=== PATIENT | female | born 1970 | race Caucasian/White ===

== ENCOUNTER 2017-05-18 07:57 | Outpatient (CLI) | payer OTHER ==
[~2017-05-18] VITALS: Ht 170.2 cm; Wt 64.8 kg
[2017-05-18] VITALS (7 sets, daily range): BP systolic 103–134; BP diastolic 66–80; PULSE 63–70; TEMP 98.2
[~2017-05-18 07:57] MED LIST: CALCIUM 600/VIT1 CAP PO; ESTRACE 1MG1 MG/TAB PO; IMURAN 50MG TAB50 MG PO; STEROIDS; VITAMIN B11000 MCG/M IM
[2017-05-18 14:42] LABS: CEREBROSPINAL TUBE #4; CSF APPEARANCE CLEAR; CSF COLOR COLORLESS
[2017-05-20 13:28] LABS: ALBUMIN CSF 21.4 mg/dL (<=27.0); CSF IGG/ALBUMIN 0.17 (<=0.21); CSF,IGG 3.7 mg/dL (<=8.1)
[2017-05-20 13:36] LABS: CSF SYNTHESIS RATE 9.51 mg/24 h (<=12); CSF-IGG INDEX 1.06 (<=0.85); IGG/ALBUMIN SERUM 0.16 (<=0.40)
== END 2017-05-18 11:02 | disposition home or self-care (01) ==
LOC: COL.RAD 07:57
PROVIDERS: Psychiatry & Neurology Neurology
DX: H53.9 Unspecified visual disturbance (principal); R20.0 Anesthesia of skin; R90.89 Other abnormal findings on diagnostic imaging of central nervous system; R20.2 Paresthesia of skin

== ENCOUNTER → 2017-05-23 | Outpatient (CLI) | payer OTHER | LOC: COL.RAD 07:12 | DX: M89.9 Disorder of bone, unspecified (principal); G35 Multiple sclerosis; R20.2 Paresthesia of skin; H53.9 Unspecified visual disturbance | CPT/HCPCS: A9585 ==

== ENCOUNTER → 2017-05-24 | Outpatient (CLI) | payer OTHER | LOC: COL.RAD 07:20 | DX: R90.89 Other abnormal findings on diagnostic imaging of central nervous system (principal); R20.0 Anesthesia of skin; R20.2 Paresthesia of skin; H53.9 Unspecified visual disturbance | CPT/HCPCS: A9585 ==

== ENCOUNTER → 2018-04-19 | Outpatient (CLI) | payer OTHER ==
[~2018-04-19] MED LIST changes: +COPAXONE40 MG/ML SQ; +GRALISE300 MG PO; +VITAMIN D 1001000 IU
== END ==
LOC: COL.RAD 09:45
DX: G35 Multiple sclerosis (principal); G93.9 Disorder of brain, unspecified; M47.812 Spondylosis without myelopathy or radiculopathy, cervical region
CPT/HCPCS: A9585

== ENCOUNTER → 2018-04-20 | Outpatient (CLI) | payer OTHER | LOC: COL.RAD 09:00 | DX: M51.87 Other intervertebral disc disorders, lumbosacral region (principal); R20.0 Anesthesia of skin; H53.9 Unspecified visual disturbance; G35 Multiple sclerosis | CPT/HCPCS: A9585 ==

== ENCOUNTER 2018-04-21 07:03 | Outpatient (RCR) | payer OTHER ==
[~2018-04-21] VITALS: Ht 170.2 cm; Wt 96.3 kg
[~2018-04-21 07:03] MED LIST changes: -COPAXONE40 MG/ML SQ; -GRALISE300 MG PO; -VITAMIN D 1001000 IU
[2018-04-21] MEDS ORDERED: GRALISE300 MG PO (07:41)
[2018-04-21] MEDS ORDERED: COPAXONE40 MG/ML SQ (07:43)
[2018-04-21] MEDS ORDERED: VITAMIN D 1001000 IU (07:45)
[2018-04-21 09:50] VITALS: BP 114/59; PULSE 64; TEMP 97.6
[2018-04-22 07:19] VITALS: BP 125/70; PULSE 78; TEMP 97.9
[2018-04-23 06:56] VITALS: BP 135/78; PULSE 69; TEMP 97
[2018-04-24 07:13] VITALS: BP 139/76; PULSE 62; TEMP 96.6
[2018-04-25 07:17] VITALS: BP 125/72; PULSE 58; TEMP 98.2
== END 2018-04-25 09:18 | disposition home or self-care (01) ==
LOC: EUO 07:10
DX: G35 Multiple sclerosis (principal)
CPT/HCPCS: J2930; J7050

== ENCOUNTER → 2018-10-01 | Outpatient (CLI) | payer OTHER ==
[~2018-10-01] MED LIST changes: +COPAXONE40 MG/ML SQ; +GRALISE300 MG PO; +VITAMIN D 1001000 IU
== END ==
LOC: COL.RAD 10:00
DX: G35 Multiple sclerosis (principal)
CPT/HCPCS: A9585

== ENCOUNTER → 2018-10-03 | Outpatient (CLI) | payer OTHER | LOC: COL.RAD 08:29 | DX: G35 Multiple sclerosis (principal); M51.36 Other intervertebral disc degeneration, lumbar region | CPT/HCPCS: A9585 ==

== ENCOUNTER 2019-01-02 07:00 | Outpatient (RCR) | payer OTHER ==
[2018-12-29 09:53] VITALS: BP 134/89; PULSE 68; TEMP 98.2
[2018-12-30 08:45] VITALS: BP 125/74; PULSE 68; TEMP 97.6
[2018-12-31 07:14] VITALS: BP 121/73; PULSE 59; TEMP 97.9
[2019-01-01 07:30] VITALS: BP 135/81; PULSE 82; TEMP 97.3
[~2019-01-02] VITALS: Ht 170.2 cm; Wt 71.2 kg
[~2019-01-02 07:00] MED LIST changes: +NEURONTIN100 MG/CAP PO; +NEURONTIN300 MG/CAP PO
[2019-01-02 07:30] VITALS: BP 125/73; PULSE 59; TEMP 98.4
== END 2019-01-02 09:03 | disposition home health service (06) ==
LOC: EUO 07:00
DX: G35 Multiple sclerosis (principal)
CPT/HCPCS: J2930; J7050

== ENCOUNTER 2019-02-08 08:41 | Outpatient (CLI) | payer OTHER ==
[~2019-02-08] VITALS: Ht 170.2 cm; Wt 70.0 kg
[2019-02-08] VITALS (13 sets, daily range): BP systolic 97–124; BP diastolic 60–85; PULSE 55–77; TEMP 97.6
[2019-02-08] MEDS ORDERED: GILENYA0.5 MG PO (09:01)
--- NOTE | 2019-02-08 12:06 | NUR ---
Pt tolerating Gilenya well at this time.
--- NOTE | 2019-02-08 13:30 | NUR ---
Heart rate dropped to 48 briefly. Pt states she feels dizzy.
--- NOTE | 2019-02-08 13:32 | NUR ---
HR recovered to 60, BP 111/77. Pt reports she is still slightly dizzy.
--- NOTE | 2019-02-08 17:24 | NUR ---
Pt reports she feels better. Pt sitting up in bed, alert and talkative.
--- NOTE | 2019-02-08 17:39 | NUR ---
Pt discharged per ambulation to car with SBA of nurse. Pt bipin well and discharged per private car.
== END 2019-02-08 17:40 | disposition home or self-care (01) ==
LOC: EUO 08:41
DX: G35 Multiple sclerosis (principal)

== ENCOUNTER 2019-03-23 08:00 | Outpatient (RCR) | payer OTHER ==
[2019-03-19 09:42] VITALS: BP 143/86; PULSE 69; TEMP 97.4
[2019-03-20 07:59] VITALS: BP 126/71; PULSE 71; TEMP 98.3
[2019-03-21 07:52] VITALS: BP 131/75; PULSE 68; TEMP 98.5
--- NOTE | 2019-03-21 09:54 | NUR ---
Pt bipin solumedrol well. Pt discharged per ambulation with PIV intact from infusion tomorrow.
[2019-03-22 09:20] VITALS: BP 135/81; PULSE 59; TEMP 98
--- NOTE | 2019-03-22 09:21 | NUR ---
Pt c/o pain imediately after start of IV solumeddrol.INT removed,catheter tip intact.New INt by DEREK Kauffman placed.
[~2019-03-23] VITALS: Ht 170.2 cm; Wt 73.0 kg
[~2019-03-23 08:00] MED LIST changes: +GILENYA0.5 MG PO
[2019-03-23 08:37] VITALS: BP 140/84; PULSE 56; TEMP 98
== END 2019-03-23 09:16 | disposition home or self-care (01) ==
LOC: EUO 08:00
DX: G35 Multiple sclerosis (principal)
CPT/HCPCS: J2930; J7050

== ENCOUNTER → 2019-05-27 | Outpatient (CLI) | payer OTHER | LOC: COL.RAD 07:20 | DX: G35 Multiple sclerosis (principal) | CPT/HCPCS: A9585 ==

== ENCOUNTER → 2020-10-21 | Outpatient (CLI) | payer OTHER | LOC: COL.RAD | DX: M50.222 Other cervical disc displacement at C5-C6 level (principal); M48.02 Spinal stenosis, cervical region | CPT/HCPCS: A9585 ==

== ENCOUNTER 2024-04-13 22:52 | Emergency (ER) | payer BC ==
[~2024-04-13] VITALS: Ht 170.2 cm; Wt 70.5 kg
[2024-04-13 22:56] VITALS: TEMP 98.5
[2024-04-13] MEDS ORDERED: fentaNYL 50 MCG/ML 2 ML VIAL IV ONE (23:30)
[2024-04-14 00:17] LABS: BASO # 0.1 K/mm3 (0.0-0.2); BASO % 0.7 % (0.0-2.0); EOS # 0.3 K/mm3 (0.0-0.7); EOS % 2.4 % (0.0-4.0); GRAN # 8.6 K/mm3 (1.4-6.5); GRAN % 72.9 % (42.2-75.2); HEMATOCRIT 41.2 % (37.0-47.0); HEMOGLOBIN 13.5 g/dl (12.5-16.0); LYMPH # 1.9 K/mm3 (1.2-3.4); LYMPH % 15.8 % (20.0-51.0); MEAN CELL VOLUME 96 fl (80.0-100.0); MEAN CORPUSCULAR HEMOGLOBIN 32 pg (27-31); MEAN CORPUSCULAR HGB CONC 33 g/dl (33.0-37.0); MEAN PLATELET VOLUME 9.6 fl (7.4-10.4); MONO # 0.9 K/mm3 (0.1-0.6); MONO % 7.8 % (1.7-9.3); PLATELET COUNT 368 K/mm3 (130-400); RED BLOOD COUNT 4.29 M/mm3 (4.10-5.30); REDCELL DISTRIBUTION WIDTH-CV 12.4 % (11.5-14.5)
[2024-04-14 00:36] LABS: ALANINE AMINOTRANSFERASE 17 U/L (0-55); ALKALINE PHOSPHATASE 63 U/L (40-150); ANION GAP 12 mmol/L (7-16); AST,SGOT 15 U/L (5-34); BILIRUBIN,TOTAL 0.5 mg/dL (0.2-1.2); BLOOD UREA NITROGEN 12 mg/dL (10-20); CHLORIDE 106 mEq/L (98-107); CREATININE, serum 0.83 mg/dL (0.57-1.11); GLUCOSE 97 mg/dL (70-99); POTASSIUM 3.3 mEq/L (3.5-4.5); SODIUM 140 mEq/L (136-145); TOTAL PROTEIN 6.6 g/dl (6.2-8.1)
[2024-04-14 00:59] LABS: TROPONIN-I < 0.010 ng/mL (0.00-0.033)
[2024-04-14] MEDS ORDERED: FLEXERIL 1010 MG/TAB PO (03:55)
[2024-04-14 04:14] VITALS: BP 125/87; PULSE 63
[2024-04-16] MEDS ORDERED: KESIMPTA P20 MG/0.4 SQ (16:12)
[2024-04-16] MEDS ORDERED: PROVIGIL200 MG PO (16:13)
[2024-04-16] MEDS ORDERED: CALCIUM 600 PLU1 TAB PO (16:14)
== END 2024-04-14 04:12 | disposition home or self-care (01) ==
LOC: COL.ER 22:52
PROVIDERS: Emergency Medicine
DX: S09.90XA Unspecified injury of head, initial encounter (principal); S00.03XA Contusion of scalp, initial encounter; M54.50 Low back pain, unspecified; G35 Multiple sclerosis; W19.XXXA Unspecified fall, initial encounter; W22.8XXA Striking against or struck by other objects, initial encounter
CPT/HCPCS: J2360; J2919; J3010; J7050

== ENCOUNTER → 2024-05-02 | Outpatient (CLI) | payer BC ==
[~2024-05-02] MED LIST changes: +CALCIUM 600 PLU1 TAB PO; +FLEXERIL 1010 MG/TAB PO; +Gadoterate 20 ML VIAL IV ONE; +KESIMPTA P20 MG/0.4 SQ; +PROVIGIL200 MG PO
== END ==
LOC: COL.RAD 14:37
DX: G35 Multiple sclerosis (principal); M54.42 Lumbago with sciatica, left side; M54.41 Lumbago with sciatica, right side
CPT/HCPCS: A9575